=== PATIENT | female | born 1985 | race Caucasian/White ===

== ENCOUNTER 2016-08-11 10:37 | Emergency (ER) | payer OTHER ==
[~2016-08-11] VITALS: Ht 162.6 cm; Wt 74.0 kg
[~2016-08-11 10:37] MED LIST: FERR27TA; IBUP-1542 PO; NITR-58 PO; PRENATAL VITS
[2016-08-11 10:41] VITALS: Ht 162.6 cm; Wt 74.0 kg
--- NOTE | 2016-08-11 11:19 | ERD ---
ER Documentation Chief Complaint Date/Time DATE: 08/11/16 TIME: 11:17 Chief Complaint LUMP ON RT EAR X 1 YEAR HPI This 30-year-old female complains of a lump on her external ear for the last year. There was a piercing there prior. She was told she has an infection. Is been no increasing pain, redness, discharge, fevers. She has not been seen for this before ROS All systems reviewed and are negative except as per history of present illness. Medications Home Meds Active Scripts Ibuprofen* (Motrin*) 600 Mg Tab, 600 MG PO Q6, #30 TAB Prov:MICHELINE ORTIZ 01/01/16 Nitrofurantoin Monohyd Macrocr* (Macrobid*) 100 Mg Capsr, 100 MG PO BID for 7 Days, CAP Prov:NASIR DURBIN 01/29/15 Reported Medications Ferrous Sulfate (Iron) 1 Tab Tablet 01/16/10 [ Vits] No Conflict Check 08/19/09 Allergies Allergies: Coded Allergies: No Known Allergies (Verified Allergy, Mild, 01/29/15) PMhx/Soc History of Surgery: No Anesthesia Reaction: No Hx Neurological Disorder: No Hx Respiratory Disorders: No Hx Cardiac Disorders: No Hx Psychiatric Problems: No Hx Miscellaneous Medical Probl: No Hx Alcohol Use: Yes Hx Substance Use: No Hx Tobacco Use: No Physical Exam Vitals Vital Signs Date Time Temp Pulse Resp B/P Pulse Ox O2 Delivery O2 Flow Rate FiO2 08/11/16 10:41 98.1 81 18 111/70 99 Physical Exam Const: [] Alert, [id number] Head: Atraumatic Eyes: Normal Conjunctiva ENT: Normal External , Nose and Mouth. The right external ear helix area there is approximately 1.3 cm keloid without erythema, fluctuance. There is no mastoid tenderness, induration. Neck: Full range of motion..~ No meningismus. Resp: Clear to auscultation bilaterally Cardio: Regular rate and rhythm, no murmurs Abd: Soft, non tender, non distended. Normal bowel sounds Skin: No petechiae or rashes Back: No midline or flank tenderness Ext: No cyanosis, or edema Neur: Awake and alert Psych: Normal Mood and Affect Procedures/MDM Patient presents with clinical signs of the keloid on the right external ear. Patient is advised recommendation to have this treated by specialist as an outpatient. There is no evidence of any acute bacterial infection, vasculitis, emergent causes of presenting complaints. Patient was advised she may need authorization from primary doctor for specialist visit Departure Diagnosis: Primary Impression: Keloid of skin Condition: Stable Patient Instructions: Scar Revision Surgery, Laceration, How To Minimize Scar Referrals: YANNI BARNETT MD,KANDI OSORIO MD, MD Additional Instructions: You have a keloid. Recommended to have this removed by a specialist. May need authorization from primary care doctor. ARLET HAYDEN MD Aug 11, 2016 11:19
== END 2016-08-11 11:38 | disposition home or self-care (01) ==
LOC: FTE 10:37
DX: L91.0 Hypertrophic scar (principal)
CPT/HCPCS: 99282

== ENCOUNTER 2017-01-27 03:19 | Inpatient (IN) | payer OTHER ==
[~2017-01-27] VITALS: Ht 162.6 cm; Wt 76.7 kg
[2017-01-27 03:50] VITALS: BP 123/65; PULSE 85; RESP 18
[2017-01-27] MEDS ORDERED: LIDOCAINE 1% (MPF) 30 ML INJ INJ PRN (04:30)
[2017-01-27] MEDS ORDERED: MISOPROSTOL 200 MCG TAB PR PRN (04:30)
[2017-01-27] MEDS ORDERED: CARBOPROST 250 MCG INJ IM PRN (04:30)
[2017-01-27] MEDS ORDERED: OXYTOCIN 30 UNITS/LR 500 ML IV PRN (04:30)
[2017-01-27] MEDS ORDERED: IBUPROFEN 600 MG TAB PO PRN (04:30)
[2017-01-27] MEDS ORDERED: BUTORPHANOL 2 MG INJ IV PRN (04:30)
[2017-01-27] MEDS ORDERED: AMPICILLIN 2 GM/NS (PMX) 100 ML IV ONE (04:30)
[2017-01-27] MEDS ORDERED: METHYLERGONOVINE 0.2 MG INJ IM PRN (04:30)
[2017-01-27] MEDS ORDERED: AMPICILLIN 2 GM/NS (PMX) 100 ML ONE (04:58)
--- NOTE | 2017-01-27 05:22 | RADRPT ---
PROCEDURE: US OB. CLINICAL INDICATION: Premature rupture of membranes TECHNIQUE: Multiple sonographic images of the pelvis were obtained. Transabdominal imaging only w as performed. The images were reviewed on a PACS workstation. COMPARISON: No prior studies are available for comparison. FINDINGS: There is a single live intrauterine gestation. Cardiac activity is present with 152 beats per minut e. position is cephalic. Measurements were made in order to determine age. The results are as follows: BPD = 8.79 cm HC = 31.65 cm AC = 31.16 cm FL = 7.14 cm. Estimated gestational age of approximately 35 weeks 5 days. The estimated date of delivery is 02/26/2017. The EFW = 2715 g, 49 %ile. The placenta is anterior. There is no evidence for an abruption or placenta previa. There are no adnexal masses. The KASHIF measures 16.6 cm. IMPRESSION: 1. Single live intrauterine gestation of approximately 35 weeks 5 days, by ultrasound criteria. 2. The estimated date of delivery is 02/26/2017. 3. The estimated weight is 2715 g, 49 %ile. 4. The KASHIF measures 16.6 cm. RPTAT: HH .Manjula Soliz MD, Date Time Electronically viewed and signed by .Manjula Soliz MD, on 01/27/2017 05:22 .G/
[2017-01-27] MEDS: LACTATED RINGER'S 1,000 ML IV SCH ×3 (05:53→23:36)
[2017-01-27 06:18] LABS: BASOPHILS % 0.3 % (0.0-2.0); EOSINOPHILS % 0.3 % (0.0-7.0); HEMATOCRIT 33.4 % (37.0-47.0); HEMOGLOBIN 11.4 g/dl (12.0-16.0); LYMPHOCYTES # 2.1 10^3/ul (0.8-2.9); LYMPHOCYTES % 21.2 % (15.0-51.0); MEAN CORPUSCULAR HEMOGLOBIN 29.7 pg (29.0-33.0); MEAN CORPUSCULAR HGB CONC 34.1 g/dl (32.0-37.0); MEAN PLATELET VOLUME 11.1 fl (7.4-10.4); MONOCYTE # 0.7 10^3/ul (0.3-0.9); MONOCYTES % 7.2 % (0.0-11.0); NEUTROPHIL # 7.1 10^3/ul (1.6-7.5); NEUTROPHILS % 70.7 % (39.0-77.0); PLATELET COUNT 220 10^3/UL (140-415); RED BLOOD COUNT 3.84 10^6/ul (4.20-5.40)
[2017-01-27 06:45] LABS: INR 0.9; PROTIME 12.2 Sec (11.9-14.9)
[2017-01-27] MEDS ORDERED: OXYTOCIN 30 UNITS/LR 500 ML IV SCH ×3 (07:00→13:30)
[2017-01-27] MEDS ORDERED: OXYCODONE/ACETAMINOPHEN (5/325) TAB PO PRN (07:00)
[2017-01-27] MEDS ORDERED: MISOPROSTOL 25 MCG CAPSULE PO SCH (07:00)
[2017-01-27 07:01] LABS: BARBITURATES Negative (NEGATIVE); BENZODIAZEPINES Negative (NEGATIVE); CANNABINOIDS Negative (NEGATIVE); COCAINE Negative (NEGATIVE); OPIATES Negative (NEGATIVE)
[2017-01-27] MEDS: AMPICILLIN 1 GM/NS (PMX) 50 ML IV SCH ×4 (09:59→21:51)
[2017-01-27] MEDS ORDERED: MISOPROSTOL 25 MCG CAPSULE PO PRN (11:00)
[2017-01-27] MEDS ORDERED: ACETAMINOPHEN 325 MG TAB PO PRN (16:00)
--- NOTE | 2017-01-27 18:25 | HP ---
Date/Time of Note Date/Time of Note DATE: 01/27/17 TIME: 18:03 OB - History Hx of Present Free Text/Dictation 31 years old female T0 PT 0 SAB 1 IAB 0 L2 admitted to [facility] at 35 weeks and 4 days of with premature rupture of membrane. Pelvic examination on admission. Cervix closed 50% effaced vertex at -3 station heart rate category 1 and in some occasion category 2. She requires labor augmentation and antibiotic coverage. Chief Complaint: 35 4/7 days . Premature rupture member Estimated Due Date: Feb 26, 2017 : 4 Para: 2 Spontaneous : 1 Care: Good Care Ultrasounds: Normal mid trimester US Obstetrical Complications: None Medical Complications: None Past Family/Social History * Past Medical, Surgical, Family and Obstetric Histories reviewed from chart. Rubella: immune RPR/VDRL: Negative GBS Status: Negative HBsAG: Negative OB Admission Exam Vital Signs Vital Signs Vital Signs Date Time Temp Pulse Resp B/P Pulse Ox O2 Delivery O2 Flow Rate FiO2 01/27/17 03:50 97.9 85 18 123/65 Room Air Physical Exam HEENT: WNL Heart: Rhythm Normal Lungs: Clear, Equal Extremities: Normal Cervical Dilatation: None Effacement: 50% Membranes: Ruptured Amniotic Fluid: Clear Heart Rate: 130's Accelerations: Accelerations Present Decelerations: Variable Decelerations Varibility: Moderate Contractions on Admission: >10 Minutes Apart Intensity: Mild Last 72 hours Lab Results CBC & BMP 01/27/17 05:45 OB Assessment/Plan Reason for admission: other (35 weeks 4 days premature rupture of membrane admitted for labor augmentation anticipating vaginal delivery) Other plan: 31 years old SAB 1 EDC February 26, 2069 at 35 weeks and 4 days . Admitted to the hospital with premature rupture of membrane. heart rate category 1 and some occasion category 2, labor augmentation, indication and reason for labor induction due to premature rupture of membrane explained. She agreed with induction of labor. Process of labor induction with Pitocin IV infusion explained risks and benefits described. Possibility of intolerance to labor augmentation with Pitocin IV infusion which may require delivery explained. All her questions answered. ROSENDO CATES MD Jan 27, 2017 18:19
[2017-01-28] MEDS: AMPICILLIN 1 GM/NS (PMX) 50 ML IV SCH ×2 (01:52→06:51)
[2017-01-28] MEDS: LACTATED RINGER'S 1,000 ML IV SCH ×3 (03:26→20:27)
[2017-01-28] MEDS ORDERED: NALOXONE (0.4 MG/ML) INJ IV PRN (03:30)
[2017-01-28] MEDS ORDERED: FENTAnyl 2MCG/ML-ROPIV 0.2% 100 ML BAG EPI SCH (03:30)
[2017-01-28] MEDS ORDERED: ONDANSETRON 4 MG INJ IV PRN ×2 (03:30→13:00)
[2017-01-28] MEDS ORDERED: EPHEDrine SULFATE 50 MG/5 ML SYG IV PRN (03:30)
[2017-01-28] MEDS ORDERED: DIPHENHYDRAMINE 50 MG INJ IV PRN (03:30)
--- NOTE | 2017-01-28 10:48 | LDN ---
Date/Time of Note Date/Time of Note DATE: 01/28/17 TIME: 10:42 Delivery Summary Normal spontaneous vaginal delivery of a baby boy from OA position shoulders delivered without any difficulty rest of the baby's body followed cord clamped after stopped pulsation placenta expelled spontaneously inspected complete. Sent to pathology blood loss 200-250 cc patient sustained small first-degree perineal laceration repaired with single [id number] 3-0 chromic catgut Weeks of Gestation 35 weeks and 4 days Placenta Delivered: Spontaneously Meconium: none Episiotomy: No Laceration repair: Small first-degree perineal laceration repaired with single 3-0 chromic catgut Anesthesia type: Epidural Estimated blood loss: 200 Sponge & Needle done & correct: Yes Any foreign bodies felt in the: No Problems: Infant Delivery Information Sex Infant Sex: male Apgars 1 Minute: 9 5 Minute: 9 Suctioning Nose & mouth suctioned at jumana: Yes Delee suction performed: No Umbilical Cord Umbilical cord with: 3 Vessels Cord presentations: no nuchal cord Cord Blood was obtained: Yes ROSENDO CATES MD Jan 28, 2017 10:48
[2017-01-28 12:30] VITALS: BP 115/59; PULSE 77; RESP 19
[2017-01-28] MEDS ORDERED: OXYTOCIN 30 UNITS/LR 500 ML IV SCH (12:33)
[2017-01-28 13:00] VITALS: BP 103/66; PULSE 80; RESP 18
[2017-01-28] MEDS ORDERED: OXYCODONE/ASPIRIN (4.88/325) TAB PO PRN ×2 (13:00)
[2017-01-28] MEDS ORDERED: DIBUCAINE 1% 30 GM OINT PR PRN (13:00)
[2017-01-28] MEDS ORDERED: LANOLIN 7 GM TUBE TOP PRN (13:00)
[2017-01-28] MEDS ORDERED: BENZOCAINE 20% 56 ML SPRAY TOP PRN (13:00)
[2017-01-28] MEDS ORDERED: WITCH HAZEL/GLYCERIN PAD PR PRN (13:00)
[2017-01-28] MEDS ORDERED: ACETAMINOPHEN 325 MG TAB PO PRN (13:00)
[2017-01-28] MEDS: HYDROCODONE/APAP (5/325) TAB PO PRN ×2 (13:30→22:24)
[2017-01-28 15:30] VITALS: BP 104/72; PULSE 72; RESP 18
[2017-01-28] MEDS: IBUPROFEN 600 MG TAB PO SCH ×2 (18:05→23:52)
[2017-01-28 19:50] VITALS: BP 101/69; PULSE 75; RESP 18
[2017-01-28] MEDS: SENNA/DOCUSATE NA (8.6MG/50MG) TAB PO SCH (22:23)
[2017-01-29] MEDS: LACTATED RINGER'S 1,000 ML IV SCH ×2 (01:24→17:00)
[2017-01-29 04:00] VITALS: BP 114/77; PULSE 67; RESP 17
[2017-01-29] MEDS: IBUPROFEN 600 MG TAB PO SCH ×3 (05:48→17:36)
[2017-01-29 07:45] VITALS: BP 99/58; PULSE 70; RESP 19
[2017-01-29] MEDS: SENNA/DOCUSATE NA (8.6MG/50MG) TAB PO SCH ×2 (08:30→23:15)
[2017-01-29] MEDS: HYDROCODONE/APAP (5/325) TAB PO PRN ×2 (08:31→23:15)
--- NOTE | 2017-01-29 10:38 | QN ---
Documentation Comment Current Medications Medications (Trade) Dose Ordered Sig/Ashley Route PRN Reason Start Time Stop Time Status Last Admin Dose Admin Lactated Ringer's 1,000 ml @ 125 mls/hr Q8H IV 01/27/17 04:27 01/28/17 06:35 Ampicillin 100 ml @ 100 mls/hr ONCE ONCE IV 01/27/17 04:30 01/27/17 05:29 DC 01/27/17 05:58 Ampicillin (Ampicillin 1 Gm/ NS (Pmx)) 50 ml @ 100 mls/hr Q4H IV 01/27/17 08:30 01/28/17 12:40 DC 01/28/17 06:51 Butorphanol Tartrate (Stadol) 2 mg Q2H PRN IV PAIN 01/27/17 04:30 01/28/17 12:40 DC Lidocaine (Xylocaine 1% (Mpf)) 30 ml ONCE PRN INJ EPISIOTOMY/TEARING 01/27/17 04:30 01/28/17 12:40 DC Ibuprofen 600 mg 600 mg ONCE PRN PO Mild Pain (Pain Score 1-3) 01/27/17 04:30 01/28/17 11:08 Oxytocin/Lactated Ringer's 500 ml @ 0 mls/hr ONCE PRN IV For Hemorrhage Management 01/27/17 04:30 01/28/17 12:40 DC Methylergonovine Maleate (Methergine) 0.2 mg ONCE PRN IM VAGINAL BLEEDING 01/27/17 04:30 Carboprost Tromethamine (Hemabate) 250 mcg ONCE PRN IM VAGINAL BLEEDING 01/27/17 04:30 Misoprostol 1000 mcg 1,000 mcg ONCE PRN NJ VAGINAL BLEEDING 01/27/17 04:30 Ampicillin 100 ml @ ud STK-MED ONCE .ROUTE 01/27/17 04:58 01/27/17 05:07 DC Oxytocin/Lactated Ringer's 500 ml @ 500 mls/hr ONCE POST IV 01/27/17 07:00 01/28/17 12:41 DC Oxytocin/Lactated Ringer's 500 ml @ 125 mls/hr POST IV 01/27/17 07:00 01/28/17 11:09 Oxycodone/ Acetaminophen (Percocet (5/ 325)) 2 tab ONCE PRN PO Moderate to Severe Pain (4-10) 01/27/17 07:00 01/28/17 12:41 DC Misoprostol (Cytotec 25 Mcg Capsule) 50 mcg Q6 PO 01/27/17 07:00 01/27/17 09:41 DC 01/27/17 07:09 Misoprostol 50 mcg 50 mcg Q4 PRN PO LABOR INDUCTION 01/27/17 11:00 01/28/17 12:41 DC Oxytocin/Lactated Ringer's 500 ml @ 0 mls/hr Q0M IV 01/27/17 13:30 01/28/17 12:41 DC 01/27/17 13:37 Acetaminophen (Tylenol Tab) 650 mg Q4H PRN PO PAIN AND OR ELEVATED TEMP 01/27/17 16:00 01/27/17 16:18 Naloxone HCl (Narcan) 0.1 mg Q2M PRN IV FOR RESP RATE 8 OR LESS 01/28/17 03:30 01/29/17 03:29 DC Diphenhydramine HCl (Benadryl) 25 mg Q6H PRN IV ITCHING 01/28/17 03:30 01/29/17 03:29 DC Ondansetron HCl (Zofran Inj) 4 mg Q6H PRN IV NAUSEA AND/OR VOMITING 01/28/17 03:30 01/29/17 03:29 DC Fentanyl/ Ropivacaine 100 ml EPIDURAL INFUSION EPI 01/28/17 03:30 01/28/17 12:41 DC 01/28/17 08:43 Ephedrine Sulfate 5 mg 5 mg PRN PRN IV BLOOD PRESSURE SUPPORT 01/28/17 03:30 01/28/17 12:41 DC Oxytocin/Lactated Ringer's 500 ml @ 50 mls/hr Q10H IV 01/28/17 12:33 01/28/17 22:32 DC 01/28/17 15:52 Ibuprofen (Motrin) 600 mg Q6 PO 01/28/17 18:00 01/29/17 05:48 Acetaminophen (Tylenol Tab) 650 mg Q4H PRN PO PAIN LEVEL 1-5 01/28/17 13:00 Acetaminophen/ Hydrocodone Bitart (Momence (5/325)) 1 tab Q4H PRN PO PAIN LEVEL 1-5 01/28/17 13:00 01/28/17 13:30 Acetaminophen/ Hydrocodone Bitart (Momence (5/325)) 2 tab Q4H PRN PO PAIN LEVEL 6-10 01/28/17 13:00 01/29/17 08:31 Oxycodone/Aspirin (Percodan) 1 tab Q3H PRN PO PAIN LEVEL 1-5 01/28/17 13:00 Oxycodone/Aspirin (Percodan) 2 tab Q3H PRN PO PAIN LEVEL 6-10 01/28/17 13:00 Ondansetron HCl (Zofran Inj) 4 mg Q6H PRN IV NAUSEA AND/OR VOMITING 01/28/17 13:00 Senna/Docusate Sodium (Senokot-S) 1 tab BID PO 01/28/17 21:00 01/29/17 08:30 [place]/ Glycerin (Tucks Pads) 1 pad BEDSIDE MEDICATION PRN [place] HEMORRHOID/EPISIOTMY PAIN 01/28/17 13:00 01/28/17 18:07 Benzocaine (Dermoplast [place]) 1 spray BEDSIDE MEDICATION PRN TOP HEMORRHOID/EPISIOTMY PAIN 01/28/17 13:00 01/28/17 18:06 Dibucaine (Nupercainal) 1 applic BEDSIDE MEDICATION PRN [place] HEMORRHOID/EPISIOTMY PAIN 01/28/17 13:00 Lanolin (Avn-S-Vtsjwk) 1 applic BEDSIDE MEDICATION PRN TOP BEDSIDE FOR NAYA TO NIPPLES 01/28/17 13:00 01/28/17 18:07 Measles/Mumps/ Rubella Vaccine Live (Mmr Ii Vaccine) 0.5 ml ONCE ONCE SC* 01/30/17 09:00 01/30/17 09:01 Post normal vaginal delivery day 1 Afebrile Vital signs are stable patient complaining of neck and headache, possibly due to epidural anesthesia recommended to be seen by the anesthesiologist. Abdomen soft. Uterus firm. Lochia normal extremities normal. ROSENDO CATES MD Jan 29, 2017 10:38
[2017-01-29 12:24] LABS: BASOPHILS % 0.2 % (0.0-2.0); EOSINOPHILS % 0.3 % (0.0-7.0); HEMATOCRIT 33.6 % (37.0-47.0); HEMOGLOBIN 11.4 g/dl (12.0-16.0); LYMPHOCYTES # 1.7 10^3/ul (0.8-2.9); LYMPHOCYTES % 15.7 % (15.0-51.0); MEAN CORPUSCULAR HEMOGLOBIN 29.4 pg (29.0-33.0); MEAN CORPUSCULAR HGB CONC 33.9 g/dl (32.0-37.0); MEAN CORPUSCULAR VOLUME 86.6 fl (82.0-101.0); MEAN PLATELET VOLUME 10.4 fl (7.4-10.4); MONOCYTE # 0.5 10^3/ul (0.3-0.9); MONOCYTES % 4.8 % (0.0-11.0); NEUTROPHIL # 8.5 10^3/ul (1.6-7.5); NEUTROPHILS % 78.6 % (39.0-77.0); PLATELET COUNT 187 10^3/UL (140-415); RED BLOOD COUNT 3.88 10^6/ul (4.20-5.40); WHITE BLOOD COUNT 10.8 10^3/ul (4.8-10.8)
[2017-01-29 15:50] VITALS: BP 103/67; PULSE 61; RESP 18
[2017-01-29 20:30] VITALS: BP 101/63; PULSE 66; RESP 17
[2017-01-30] MEDS: IBUPROFEN 600 MG TAB PO SCH ×3 (00:17→12:08)
[2017-01-30 04:00] VITALS: BP 99/56; PULSE 77; RESP 18
[2017-01-30] MEDS ORDERED: MEASLES,MUMPS,RUBELLA VACCINE INJ SC* ONE (09:00)
[2017-01-30] MEDS: SENNA/DOCUSATE NA (8.6MG/50MG) TAB PO SCH (09:56)
[2017-01-30] MEDS: HYDROCODONE/APAP (5/325) TAB PO PRN ×2 (10:07→16:13)
[2017-01-30 16:14] VITALS: BP 111/66; PULSE 54; RESP 20
--- NOTE | 2017-01-30 16:58 | PD.PPDC ---
ADVERTISING INTERN Discharge Instruction Condition Patient Condition: Good Diet Diet: Resume Regular Diet Activity/Restrictions Restrictions: No Exercising No Lifting No Driving No Sexual Activity Nothing in the Vagina No [place] No Tampons, douche Follow-up Follow-up with Physician: 2, Week/Weeks Provider Information: instruction given recommended to make appointment to be seen at the clinic in 2 weeks Return to clinic for [facility] CLINICAL NURSE SPECIALIST Instructions: Fever greater than 101 Chills Worsening abdominal pain Excessive Vaginal Bleeding More than 2 pads per hour Unable to tolerate diet ROSENDO CATES MD Jan 30, 2017 16:58
--- NOTE | 2017-01-30 17:01 | DS ---
Date/Time of Note Date/Time of Note DATE: 01/30/17 TIME: 16:58 Discharge Summary Admission/Discharge Info Admit Date/Time Jan 27, 2017 at 04:15 Discharge Date/Time January 302016 at 1655 Discharge Diagnosis Post normal vaginal delivery day 2 Patient Condition: Good Procedures Normal vaginal delivery Hx of Present Illness Term admitted for delivery Hospital Course Satisfactory recovery uneventful Home Meds Reported Medications [ Vits] No Conflict Check 08/19/09 Discontinued Reported Medications Ferrous Sulfate (Iron) 1 Tab Tablet 01/16/10 Discontinued Scripts Ibuprofen* (Motrin*) 600 Mg Tab, 600 MG PO Q6, #30 TAB Prov:MICHELINE ORTIZ 01/01/16 Nitrofurantoin Monohyd Macrocr* (Macrobid*) 100 Mg Capsr, 100 MG PO BID for 7 Days, CAP Prov:NASIR DURBIN 01/29/15 Follow-up Plan instructions given. Recommended to make appointment to be seen at the clinic in 2 weeks Primary Care Provider Care Physician No Primary Time spent on discharge: < 30 minutes ROSENDO CATES MD Jan 30, 2017 17:01
== END 2017-01-30 17:35 | disposition home or self-care (01) | DRG 775 ==
LOC: OBT 03:19 → L-D 03:19 → OBT 04:35 → L-D 04:54 → PP1 01-28 12:29
PROVIDERS: ADMIT Obstetrics & Gynecology; ATTEND Obstetrics & Gynecology
PROC: 10E0XZZ Delivery of Products of Conception, External Approach (ICD-10-PCS; principal; 2017-01-28)
PROC: 0HQ9XZZ Repair Perineum Skin, External Approach (ICD-10-PCS; 2017-01-28)
DX: O70.0 First degree perineal laceration during delivery (principal); Z37.0 Single live birth; Z3A.35 35 weeks gestation of pregnancy
CPT/HCPCS: 62319; 76815; 80307; 85025; 85610; 85730; 86592; 86885; 86900; 86901; 87340; G0463; J0290; J2590; J3010; J7120

== ENCOUNTER 2017-12-08 10:52 | Emergency (ER) | END 2017-12-08 12:58 | disposition home or self-care (01) ==

== ENCOUNTER 2018-10-23 06:10 | Emergency (ER) | payer OTHER ==
[~2018-10-23] VITALS: Ht 162.6 cm; Wt 73.3 kg
[~2018-10-23 06:10] MED LIST changes: -FERR27TA; +HYDR-3029 PO; -IBUP-1542 PO; -NITR-58 PO
[2018-10-23 06:12] VITALS: Ht 162.6 cm; Wt 73.3 kg
[2018-10-23] MEDS ORDERED: ALPRAZOLAM 1 MG TAB PO ONE (06:30)
[2018-10-23 06:51] VITALS: BP 132/85; PULSE 103; RESP 19
== END 2018-10-23 07:09 | disposition home or self-care (01) ==
LOC: FTE 06:10
DX: R00.0 Tachycardia, unspecified (principal); F17.210 Nicotine dependence, cigarettes, uncomplicated
CPT/HCPCS: 93005; Z7502; Z7610